=== PATIENT | male | born 1995 | race African-American/Black ===

== ENCOUNTER 2020-10-03 13:33 | Emergency (ER) | payer OTHER ==
[~2020-10-03] VITALS: Ht 157.5 cm; Wt 59.0 kg
[2020-10-03] MEDS ORDERED: SODIUM CHLORIDE 0.9% 50ML 50 ML ONE (14:22)
[2020-10-03] MEDS ORDERED: DIATRIZOATE MEGL/DIATRIZOA SOD 30 ML BTL PO ONE (14:22)
[2020-10-03] MEDS ORDERED: IOPAMIDOL 370 MG/ML 200 ML INFUS..BTL INJ ONE (14:23)
== END 2020-10-03 17:08 | disposition home or self-care (01) ==
LOC: FSED 13:45
DX: R10.31 Right lower quadrant pain (principal); S39.011A Strain of muscle, fascia and tendon of abdomen, initial encounter; Y93.A2 Activity, calisthenics; Y92.89 Other specified places as the place of occurrence of the external cause
CPT/HCPCS: 74177; 80053; 85025; 99284; Q9967